=== PATIENT | female | born 1980 | race Caucasian/White ===

== ENCOUNTER → 2017-03-19 | Outpatient (CLI) | payer OTHER | END | disposition home or self-care (01) | LOC: CFH 14:41 | PROVIDERS: ATTEND Physician Assistant | DX: M25.461 Effusion, right knee (principal); S83.231A Complex tear of medial meniscus, current injury, right knee, initial encounter; M79.4 Hypertrophy of (infrapatellar) fat pad; M25.861 Other specified joint disorders, right knee; X58.XXXA Exposure to other specified factors, initial encounter; Y93.89 Activity, other specified; Y92.89 Other specified places as the place of occurrence of the external cause; Y99.8 Other external cause status ==

== ENCOUNTER 2017-04-13 06:08 | Emergency (ER) | payer OTHER ==
[~2017-04-13] VITALS: Ht 160 cm; Wt 83.8 kg
[2017-04-13] MEDS ORDERED: SODIUM CHLORIDE FLUSH 10ML SYR IVF ONE (07:30)
[2017-04-13] MEDS ORDERED: SODIUM CHLORIDE 0.9% 1,000ML IVBOLUS ONE (07:30)
[2017-04-13] MEDS ORDERED: ONDANSETRON 2MG/ML, 2ML IVPush ONE (07:30)
[2017-04-13] MEDS ORDERED: ONDANSETRON 2MG/ML, 2ML ONE ×2 (07:41→07:43)
[2017-04-13 07:55] LABS: PATH.CAST-FLAG NOT PRESENT; SPERM-FLAG NOT PRESENT; SRC-FLAG NOT PRESENT; XTAL-FLAG NOT PRESENT; YLC-FLAG NOT PRESENT
[2017-04-13] MEDS ORDERED: HYDROmorphone 1 MG/ML, 1ML ONE ×2 (08:14→10:21)
[2017-04-13 08:21] LABS: ASPARTATE AMINO TRANSFERASE 13 U/L (15-37); BLOOD UREA NITROGEN 14 mg/dL (7-18)
[2017-04-13] MEDS ORDERED: HYDROmorphone 1 MG/ML, 1ML IV ONE ×2 (09:00→10:30)
[2017-04-13 11:37] VITALS: BP 97/47
== END 2017-04-13 11:39 | disposition home or self-care (01) ==
LOC: ED 09:02
DX: N83.201 Unspecified ovarian cyst, right side (principal); D72.829 Elevated white blood cell count, unspecified
CPT/HCPCS: 36415; 76830; 80053; 81001; 83690; 84703; 85025; 96361; 96374; 96375; 96376; 99285; J1170; J2405; J7030

== ENCOUNTER 2017-04-15 12:33 | Inpatient (IN) | payer OTHER ==
[~2017-04-15] VITALS: Ht 160 cm; Wt 84.1 kg
[2017-04-15] MEDS ORDERED: ONDANSETRON 2MG/ML, 2ML ONE (14:03)
[2017-04-15] MEDS ORDERED: HYDROmorphone 1 MG/ML, 1ML ONE ×2 (14:03→16:06)
[2017-04-15] MEDS: HYDROmorphone 1 MG/ML, 1ML IVPush PRN ×2 (14:13→16:11)
[2017-04-15] MEDS ORDERED: ONDANSETRON 2MG/ML, 2ML IVPush ONE (14:30)
[2017-04-15] MEDS ORDERED: SODIUM CHLORIDE 0.9%, 500ML IVBOLUS ONE (14:30)
[2017-04-15 14:45] LABS: ASPARTATE AMINO TRANSFERASE 9 U/L (15-37); BLOOD UREA NITROGEN 11 mg/dL (7-18)
[2017-04-15 14:53] LABS: HEMATOCRIT 35.8 % (34.6-47.8); WHITE BLOOD COUNT 11.6 x10^3/uL (3.4-10)
[2017-04-15] MEDS ORDERED: OMNIPAQUE 350 MG/ML, 100ML BOTTLE ONE (17:32)
[2017-04-15] MEDS ORDERED: ONDANSETRON 2MG/ML, 2ML IVPush PRN (20:30)
[2017-04-15] MEDS ORDERED: morphine SULFATE 10 MG/ML, 1ML IVPush PRN (20:30)
[2017-04-15] MEDS: SIMETHICONE 80 MG CHEW TAB PO SCH (21:43)
[2017-04-15] MEDS: DOCUSATE 100 MG CAPSULE PO SCH (21:43)
[2017-04-15] MEDS: LACTATED RINGERS 1,000 ML IV SCH (21:44)
[2017-04-15] MEDS: KETOROLAC 30 MG/1 ML IVPush PRN (21:44)
[2017-04-15 22:30] VITALS: BP 126/76
[2017-04-16 01:20] VITALS: BP 103/62
[2017-04-16] MEDS: LACTATED RINGERS 1,000 ML IV SCH (05:36)
[2017-04-16] MEDS: KETOROLAC 30 MG/1 ML IVPush PRN (05:46)
[2017-04-16 07:04] VITALS: BP 97/59
[2017-04-16] MEDS: SIMETHICONE 80 MG CHEW TAB PO SCH ×2 (09:37→16:59)
[2017-04-16] MEDS: DOCUSATE 100 MG CAPSULE PO SCH (09:37)
[2017-04-16] MEDS ORDERED: IBUPROFEN 200 MG TABLET PO PRN (11:00)
[2017-04-16] MEDS ORDERED: IBUPROFEN 600 MG TABLET ONE (12:17)
[2017-04-16] MEDS: OXYcodone/APAP 5/325MG TABLET PO PRN ×2 (13:01→16:59)
[2017-04-16 14:53] VITALS: BP 134/89
[2017-04-16] MEDS ORDERED: OXYC-302 PO (16:36)
[2017-04-16] MEDS ORDERED: IBUP800T PO (16:36)
[2017-04-16] MEDS ORDERED: ONDA4TAB7 PO (16:37)
[2017-04-16 17:00] VITALS: BP 117/75
== END 2017-04-16 17:10 | disposition home or self-care (01) | DRG 761 ==
LOC: ED 14:42 → EDIP 17:40 → 4NOR 19:47
PROVIDERS: ADMIT Obstetrics & Gynecology; ATTEND Obstetrics & Gynecology
DX: N83.201 Unspecified ovarian cyst, right side (principal); Z90.89 Acquired absence of other organs; Z88.0 Allergy status to penicillin; Z80.3 Family history of malignant neoplasm of breast
CPT/HCPCS: 36415; 74177; 80053; 81003; 83605; 85025; 96361; 96374; 96375; 96376; J1170; J1885; J2405; Q9967; J7040; J7120

== ENCOUNTER → 2017-05-17 | Outpatient (CLI) | payer OTHER ==
[~2017-05-17] MED LIST: IBUP-1223 PO; LACT1CAP40 PO; MULT-516 PO; ONDA4TAB7 PO; OXYC-302 PO
== END | disposition home or self-care (01) ==
LOC: STAR 15:14
PROVIDERS: ATTEND Orthopaedic Surgery
DX: Z02.9 Encounter for administrative examinations, unspecified (principal)

== ENCOUNTER 2017-05-23 13:26 | Day surgery (SDC) | payer OTHER ==
[~2017-05-23] VITALS: Ht 157.5 cm; Wt 80.7 kg
[~2017-05-23 13:26] MED LIST changes: +EPINEPHRINE 1 MG/ML, 1ML ONE; +LIDOCAINE/PF 1%, 30ML ONE; +ROPIvacaine/PF 0.5%, 30 ML ONE
[2017-05-23] MEDS ORDERED: LACTATED RINGERS 1,000 ML IV SCH (13:48)
[2017-05-23 14:16] VITALS: BP 134/75
[2017-05-23 14:24] LABS: HCG UR OBC PASS
[2017-05-23] MEDS ORDERED: ROCURONIUM 10 MG/ML ONE (14:46)
[2017-05-23] MEDS ORDERED: ONDANSETRON 2MG/ML, 2ML ONE (14:46)
[2017-05-23] MEDS ORDERED: PROPOFOL 10 MG/ML, 20ML ONE (14:46)
[2017-05-23] MEDS ORDERED: CEFAZOLIN 1,000 MG ONE (14:46)
[2017-05-23] MEDS ORDERED: DEXAMETHASONE 4 MG/ML, 1ML ONE (14:46)
[2017-05-23] MEDS ORDERED: SUCCINYLCHOLINE 20 MG/ML, 10ML ONE (14:46)
[2017-05-23] MEDS ORDERED: MIDAZOLAM 1 MG/ML, 2ML ONE (14:48)
[2017-05-23] MEDS ORDERED: FENTANYL PF 100 MCG/2ML ONE ×2 (14:49→15:38)
[2017-05-23] MEDS ORDERED: MIDAZOLAM 1 MG/ML, 2ML IV PRN (15:00)
[2017-05-23] MEDS ORDERED: OXYcodone 5 MG/5 ML ORAL.SOL UDC PO PRN (15:00)
[2017-05-23] MEDS ORDERED: PROMETHAZINE 25 MG/ML, 1ML IV PRN (15:00)
[2017-05-23] MEDS ORDERED: METOPROLOL 1 MG/ML, 5ML IV PRN (15:00)
[2017-05-23] MEDS ORDERED: hydrALAzine 20 MG/ML, 1ML IV PRN (15:00)
[2017-05-23] MEDS ORDERED: METOCLOPRAMIDE 5 MG/ML, 2ML IV PRN (15:00)
[2017-05-23] MEDS ORDERED: ACETAMINOPHEN 325 MG TABLET PO PRN (15:00)
[2017-05-23] MEDS ORDERED: ONDANSETRON 2MG/ML, 2ML IVPush PRN (15:00)
[2017-05-23] MEDS ORDERED: EPHEDRINE 50 MG/ML, 1ML IVPush PRN (15:00)
[2017-05-23] MEDS ORDERED: HYDROcodone/APAP 7.5-325MG/15ML UDC PO PRN (15:00)
[2017-05-23] MEDS ORDERED: MEPERIDINE/PF 25MG/0.5ML IVPush PRN (15:00)
[2017-05-23] MEDS ORDERED: LABETALOL 5MG/ML, 20ML IV PRN (15:00)
[2017-05-23] MEDS ORDERED: KETOROLAC 30 MG/1 ML IV PRN (15:00)
[2017-05-23] MEDS ORDERED: ALBUTEROL SULFATE 2.5 MG/3 ML NPPB PRN (15:00)
[2017-05-23] MEDS ORDERED: METOCLOPRAMIDE 5 MG/ML, 2ML ONE (15:28)
[2017-05-23] MEDS ORDERED: KETOROLAC 30 MG/1 ML ONE (15:28)
[2017-05-23] MEDS ORDERED: HYDROmorphone 1 MG/ML, 1ML ONE (15:28)
[2017-05-23] MEDS: HYDROmorphone 1 MG/ML, 1ML IV PRN ×2 (15:30→15:40)
[2017-05-23] MEDS ORDERED: OXYcodone 5 MG/5 ML ORAL.SOL UDC ONE (15:38)
[2017-05-23] MEDS ORDERED: ACETAMINOPHEN 650 MG/20.3 ML UDC ONE (15:38)
[2017-05-23] MEDS: FENTANYL PF 100 MCG/2ML IV PRN ×2 (15:42→15:55)
[2017-05-23] MEDS ORDERED: OXYcodone/APAP 5/325MG TABLET ONE (16:50)
[2017-05-23] MEDS ORDERED: OXYcodone/APAP 5/325MG TABLET PO PRN (17:30)
== END 2017-05-23 17:15 | disposition home or self-care (01) ==
LOC: OUT 13:26
PROVIDERS: ATTEND Orthopaedic Surgery
DX: S83.241A Other tear of medial meniscus, current injury, right knee, initial encounter (principal); M67.51 Plica syndrome, right knee; M65.861 Other synovitis and tenosynovitis, right lower leg; M94.8X6 Other specified disorders of cartilage, lower leg; Z88.0 Allergy status to penicillin; Z98.890 Other specified postprocedural states; X58.XXXA Exposure to other specified factors, initial encounter; Y93.89 Activity, other specified; Y92.89 Other specified places as the place of occurrence of the external cause; Y99.8 Other external cause status
CPT/HCPCS: 29881; 81025; J0171; J0330; J0690; J1100; J1170; J1885; J2250; J2405; J2704; J2765; J2795; J3010; J3490; J7120

== ENCOUNTER 2017-12-13 09:46 | Emergency (ER) | payer OTHER ==
[~2017-12-13] VITALS: Ht 160 cm; Wt 83.4 kg
[~2017-12-13 09:46] MED LIST changes: -EPINEPHRINE 1 MG/ML, 1ML ONE; -LIDOCAINE/PF 1%, 30ML ONE; -ROPIvacaine/PF 0.5%, 30 ML ONE
[2017-12-13] MEDS ORDERED: ALBUTEROL/IPRATROPIUM 2.5MG/0.5MG, 3 ML NPPB ONE (10:30)
[2017-12-13] MEDS ORDERED: ASPIRIN 81 MG TABLET CHEW PO ONE (10:30)
[2017-12-13] MEDS ORDERED: ASPIRIN 81 MG TABLET CHEW ONE (10:36)
[2017-12-13 10:49] LABS: BASOPHILS # (AUTO) 0.08 x10^3/uL (0-0.1); BASOPHILS % (AUTO) 1 % (0-1); EOSINOPHILS # (AUTO) 0.06 x10^3/uL (0-0.4); EOSINOPHILS % (AUTO) 1 % (1-7); LYMPHOCYTES # (AUTO) 3.55 x10^3/uL (1-3.4); LYMPHOCYTES % (AUTO) 31 % (22-44); MD NO; MEAN CORPUSCULAR HEMOGLOBIN 32.9 pg (27.0-34.8); MEAN CORPUSCULAR HGB CONC 34.1 g/dL (32.4-35.8); MEAN CORPUSCULAR VOLUME 96.4 fL (80-100); MEAN PLATELET VOLUME 9.7 fL (7.4-10.4); MONOCYTES # (AUTO) 0.66 x10^3/uL (0.2-0.8); MONOCYTES % (AUTO) 6 % (2-9); NEUTROPHILS # (AUTO) 6.95 x10^3/uL (1.8-6.8); NEUTROPHILS % (AUTO) 62 % (42-75); PLATELET COUNT 217 x10^3/uL (130-400); RED BLOOD COUNT 3.91 x10^6/uL (3.82-5.3); RED CELL DISTRIBUTION WIDTH 12.9 % (9.6-15.2)
[2017-12-13 10:59] LABS: ALBUMIN 3.3 g/dL (3.4-5.0); ANION GAP 10 mmol/L (5-15); CHLORIDE 109 mmol/L (98-107)
[2017-12-13 11:05] LABS: ALANINE AMINOTRANSFERASE 21 U/L (12-78); ALKALINE PHOSPHATASE 46 U/L (45-117); BILIRUBIN,TOTAL 0.7 mg/dL (0.2-1.0); CREATININE 0.78 mg/dL (0.55-1.02); TOTAL PROTEIN 6.3 g/dL (6.4-8.2); TROPONIN I < 0.015 ng/mL (0.000-0.045)
[2017-12-13] MEDS ORDERED: ALBUTEROL/IPRATROPIUM 2.5MG/0.5MG, 3 ML ONE (11:57)
[2017-12-13 12:33] VITALS: BP 112/61
== END 2017-12-13 12:40 | disposition home or self-care (01) ==
LOC: ED 12:34
DX: G89.29 Other chronic pain (principal); M54.6 Pain in thoracic spine; R06.00 Dyspnea, unspecified; Z87.891 Personal history of nicotine dependence
CPT/HCPCS: 36415; 71045; 80053; 83880; 84484; 85025; 85379; 93005; 93971; 94640; 99285; J7512; J7620

== ENCOUNTER → 2018-01-09 | Outpatient (CLI) | payer OTHER ==
[~2018-01-09] MED LIST changes: +REGADENOSON 0.4 MG/5 ML SYRINGE ONE
== END ==
LOC: CFH 12:47
PROVIDERS: ATTEND Internal Medicine Cardiovascular Disease
DX: R94.31 Abnormal electrocardiogram [ECG] [EKG] (principal); R07.89 Other chest pain
CPT/HCPCS: 78452; 93017; A9502; J2785

== ENCOUNTER → 2018-05-23 | Outpatient (CLI) | payer OTHER ==
[~2018-05-23] MED LIST changes: -REGADENOSON 0.4 MG/5 ML SYRINGE ONE
== END | disposition home or self-care (01) ==
LOC: RAD 12:51
PROVIDERS: ATTEND Otolaryngology
DX: J31.2 Chronic pharyngitis (principal); R49.0 Dysphonia; Z88.1 Allergy status to other antibiotic agents; Z87.891 Personal history of nicotine dependence
CPT/HCPCS: 74220

== ENCOUNTER 2018-11-24 10:21 | Emergency (ER) | payer OTHER ==
[~2018-11-24] VITALS: Ht 157.5 cm; Wt 73.0 kg
--- NOTE | 2018-11-24 10:25 | NUR ---
TASK RN: PT TO IMAGING
[2018-11-24] MEDS ORDERED: ONDANSETRON 2MG/ML, 2ML IVPush ONE (10:30)
[2018-11-24] MEDS ORDERED: ONDANSETRON 2MG/ML, 2ML ONE (10:34)
[2018-11-24] MEDS ORDERED: OMNIPAQUE 350 MG/ML, 100ML BOTTLE ONE (10:50)
[2018-11-24] MEDS ORDERED: MORPHINE SULFATE 4 MG/ML, 1ML ONE ×3 (10:50→16:17)
[2018-11-24] MEDS: MORPHINE SULFATE 4 MG/ML, 1ML IVPush PRN ×2 (10:51→11:56)
[2018-11-24] MEDS ORDERED: PLEASE ENTER HEIGHT AND WEIGHT MC SCH (11:00)
--- NOTE | 2018-11-24 11:03 | NUR ---
FRIEND AT BS DURING ASSESSMENT
--- NOTE | 2018-11-24 11:03 | NUR ---
NEURO AT BS VIA TELEMONITOR
[2018-11-24 11:06] LABS: BASOPHILS # (AUTO) 0.05 x10^3/uL (0-0.1); BASOPHILS % (AUTO) 0 % (0-1); EOSINOPHILS # (AUTO) 0.08 x10^3/uL (0-0.4); EOSINOPHILS % (AUTO) 1 % (1-7); LYMPHOCYTES # (AUTO) 3.56 x10^3/uL (1-3.4); LYMPHOCYTES % (AUTO) 33 % (22-44); MD NO; MEAN CORPUSCULAR HGB CONC 33.6 g/dL (32.4-35.8); MEAN CORPUSCULAR VOLUME 98.2 fL (80-100); MONOCYTES # (AUTO) 0.79 x10^3/uL (0.2-0.8); MONOCYTES % (AUTO) 7 % (2-9); NEUTROPHILS # (AUTO) 6.21 x10^3/uL (1.8-6.8); NEUTROPHILS % (AUTO) 58 % (42-75); PLATELET COUNT 234 x10^3/uL (130-400); RED BLOOD COUNT 3.78 x10^6/uL (3.82-5.3); RED CELL DISTRIBUTION WIDTH 13.9 % (9.6-15.2)
[2018-11-24 11:10] LABS: INTERNATIONAL NORMALIZED RATIO 0.95 (0.93-1.1)
--- NOTE | 2018-11-24 11:47 | NUR ---
PATIENT NEURO RE-ASSESSED, STABLE NEURO ASSESSMENT WITH LEFT SIDED DFEICITS. NO CHANGE, EXCEPT SOME IMPROVEMENT WITH LEG STRENGTH
--- NOTE | 2018-11-24 12:35 | NUR ---
PATIENT TRANSFERED TO [facility]. PATIENT ABLE TO STAND, ONE PERSON ASSIST. UPDATED ON PLAN OF CARE.
--- NOTE | 2018-11-24 12:54 | NUR ---
Bedside report received from AKILAH Montiel. Patient with small amount of residual weakness on the left, patient states she feels this is resolving. Plan is for patient to go to MRI, plan of care updated with patient, questions answered. Patient is alert and appropriate at this time, daughter at bedside.
--- NOTE | 2018-11-24 13:35 | NUR ---
AWAITING MRI. MOVED TO ROOM 27
--- NOTE | 2018-11-24 14:17 | NUR ---
patient taken to MRI. daughter at bs
[2018-11-24] MEDS ORDERED: GADOBUTROL 7.5 MMOL/7.5 ML PFS ONE (14:20)
--- NOTE | 2018-11-24 14:52 | NUR ---
PATIENT FROM MRI
[2018-11-24 15:10] VITALS: BP 115/64
[2018-11-24] MEDS ORDERED: MORPHINE SULFATE 4 MG/ML, 1ML IVPush PRN (16:30)
== END 2018-11-24 16:37 | disposition home or self-care (01) ==
LOC: ED 16:09
DX: R51 Headache (principal); I48.91 Unspecified atrial fibrillation; R53.1 Weakness
CPT/HCPCS: 36415; 70450; 70496; 70498; 70553; 80047; 85025; 85610; 85730; 93005; 96374; 96375; 96376; 99284; A9585; J2405; Q9967

== ENCOUNTER 2019-04-08 14:04 | Outpatient (CLI) | payer OTHER | END 2019-04-08 23:59 | disposition home or self-care (01) | LOC: CFH 14:04 | PROVIDERS: ATTEND Nurse Practitioner Family | DX: Z12.31 Encounter for screening mammogram for malignant neoplasm of breast (principal) | CPT/HCPCS: 77063; 77067 ==

== ENCOUNTER → 2020-03-04 | Outpatient (CLI) | payer OTHER ==
[~2020-03-04] MED LIST changes: +ASPI81TA45 PO; +ELDERBERRY PO
[2020-03-04 09:25] LABS: ANION GAP 7 mmol/L (5-15); CALCIUM 8.5 mg/dL (8.5-10.1); CHLORIDE 107 mmol/L (98-107); CREATININE 0.85 mg/dL (0.55-1.02)
[2020-03-04 09:31] LABS: HCG UR SG 1.004 (1.003-1.030)
[2020-03-04 10:24] LABS: MEAN CORPUSCULAR HEMOGLOBIN 32.6 pg (27.0-34.8); MEAN CORPUSCULAR HGB CONC 33.5 g/dL (32.4-35.8); MEAN CORPUSCULAR VOLUME 97.2 fL (80-100); MEAN PLATELET VOLUME 10.6 fL (7.4-10.4); PLATELET COUNT 182 x10^3/uL (130-400); RED BLOOD COUNT 4.42 x10^6/uL (3.82-5.3); RED CELL DISTRIBUTION WIDTH 14.2 % (9.6-15.2)
[2020-03-04 10:28] LABS: MD SCAN
[2020-03-04 10:29] LABS: BASOPHILS # (AUTO) 0.04 x10^3/uL (0-0.1); BASOPHILS % (AUTO) 0 % (0-1); EOSINOPHILS # (AUTO) 0.08 x10^3/uL (0-0.4); EOSINOPHILS % (AUTO) 1 % (1-7); LYMPHOCYTES # (AUTO) 2.79 x10^3/uL (1-3.4); LYMPHOCYTES % (AUTO) 24 % (22-44); MONOCYTES % (AUTO) 7 % (2-9); NEUTROPHILS # (AUTO) 8.15 x10^3/uL (1.8-6.8); NEUTROPHILS % (AUTO) 69 % (42-75)
== END | disposition home or self-care (01) ==
LOC: STAR 08:34
PROVIDERS: ATTEND Obstetrics & Gynecology
DX: Z01.818 Encounter for other preprocedural examination (principal); R10.2 Pelvic and perineal pain; N93.9 Abnormal uterine and vaginal bleeding, unspecified
CPT/HCPCS: 36415; 80048; 81025; 85025

== ENCOUNTER 2020-03-08 10:29 | Inpatient (IN) | payer OTHER ==
[~2020-03-08] VITALS: Ht 157.5 cm; Wt 71.6 kg
[2020-03-08 11:10] VITALS: BP 110/74
[2020-03-08] MEDS ORDERED: CHLORHEXIDINE 15 ML UDC ONE (11:13)
[2020-03-08 11:21] LABS: HCG UR SG 1.014 (1.003-1.030)
[2020-03-08] MEDS ORDERED: LACTATED RINGERS 1,000 ML IV SCH (11:30)
[2020-03-08] MEDS ORDERED: CHLORHEXIDINE 15 ML UDC MM ONE (11:30)
[2020-03-08] MEDS ORDERED: BUPIVACAINE/PF 0.25% ONE (11:51)
[2020-03-08] MEDS ORDERED: EPINEPHRINE 1 MG/ML, 1ML ONE (11:51)
[2020-03-08] MEDS ORDERED: ACETAMINOPHEN 500 MG TABLET PO ONE (12:00)
[2020-03-08] MEDS ORDERED: OXYcodone IR 5MG TABLET PO ONE (12:00)
[2020-03-08] MEDS ORDERED: SCOPOLAMINE 1MG PATCH TD SCH (12:00)
[2020-03-08] MEDS ORDERED: FLUORESCEIN SODIUM 500 MG/5 ML ONE (12:04)
[2020-03-08] MEDS ORDERED: MIDAZOLAM 1 MG/ML, 2ML ONE (12:13)
[2020-03-08] MEDS ORDERED: FENTANYL PF 250 MCG/5ML ONE (12:14)
[2020-03-08] MEDS ORDERED: ROCURONIUM 10 MG/ML,10ML ONE (12:35)
[2020-03-08] MEDS ORDERED: DEXAMETHASONE 4 MG/ML, 1ML ONE (12:35)
[2020-03-08] MEDS ORDERED: ONDANSETRON 2MG/ML, 2ML ONE (12:35)
[2020-03-08] MEDS ORDERED: PROPOFOL 10 MG/ML, 50ML ONE (12:35)
[2020-03-08] MEDS ORDERED: CEFAZOLIN 1,000 MG ONE (12:35)
[2020-03-08] MEDS ORDERED: PROPOFOL 10 MG/ML, 20ML ONE (12:35)
[2020-03-08] MEDS ORDERED: ONDANSETRON 2MG/ML, 2ML IVPush PRN (13:00)
[2020-03-08] MEDS ORDERED: OXYcodone 5 MG/5 ML ORAL.SOL UDC PO PRN (13:00)
[2020-03-08] MEDS ORDERED: PROMETHAZINE 25 MG/ML, 1ML IVPush PRN (13:00)
[2020-03-08] MEDS ORDERED: MEPERIDINE/PF 25MG/0.5ML IVPush PRN (13:00)
[2020-03-08] MEDS ORDERED: MEPERIDINE/PF 25MG/ML,1ML ONE (16:10)
[2020-03-08] MEDS ORDERED: FENTANYL PF 100 MCG/2ML ONE (16:16)
[2020-03-08] MEDS: FENTANYL PF 100 MCG/2ML IV PRN ×3 (16:25→16:37)
[2020-03-08] MEDS ORDERED: PROMETHAZINE 25 MG/ML, 1ML ONE (16:29)
[2020-03-08] MEDS ORDERED: HYDROmorphone 1 MG/ML, 1ML INJ ONE (16:45)
[2020-03-08] MEDS: HYDROmorphone 1 MG/ML, 1ML INJ IVPush PRN ×2 (16:50→17:15)
[2020-03-08] MEDS ORDERED: ONDANSETRON 2MG/ML, 2ML IV PRN (18:30)
[2020-03-08] MEDS ORDERED: KETOROLAC 30 MG/1 ML IV PRN (18:30)
[2020-03-08] MEDS: OXYcodone/APAP 5/325MG TABLET PO PRN ×2 (19:34→20:33)
[2020-03-08] MEDS ORDERED: SODIUM CHLORIDE FLUSH 10ML SYR IVF SCH (21:00)
== END 2020-03-08 21:10 | disposition home or self-care (01) | DRG 743 ==
LOC: OUT 10:29 → 4NE 17:58 → OUT 18:13
PROVIDERS: ADMIT Obstetrics & Gynecology; ATTEND Obstetrics & Gynecology
PROC: BT1D1ZZ Fluoroscopy of Right Kidney, Ureter and Bladder using Low Osmolar Contrast (ICD-10-PCS; 2020-03-08)
PROC: 0UT9FZZ Resection of Uterus, Via Natural or Artificial Opening With Percutaneous Endoscopic Assistance (ICD-10-PCS; principal; 2020-03-08 12:30)
PROC: 0UT7FZZ Resection of Bilateral Fallopian Tubes, Via Natural or Artificial Opening With Percutaneous Endoscopic Assistance (ICD-10-PCS; 2020-03-08 12:30)
DX: N93.8 Other specified abnormal uterine and vaginal bleeding (principal); G89.29 Other chronic pain; R10.2 Pelvic and perineal pain; N99.85 Post endometrial ablation syndrome; N94.6 Dysmenorrhea, unspecified; Z90.89 Acquired absence of other organs; Z88.0 Allergy status to penicillin; Z80.3 Family history of malignant neoplasm of breast
CPT/HCPCS: 36415; 74420; 81025; 87635; 88307; G0378; J0171; J0690; J1100; J1170; J1885; J2175; J2250; J2405; J2550; J2704; J3010; J3490; C1758; C1769; J7120

== ENCOUNTER → 2020-05-02 | Outpatient (CLI) | payer OTHER ==
[2020-05-02 07:41] LABS: BASOPHILS # (AUTO) 0.06 x10^3/uL (0-0.1); BASOPHILS % (AUTO) 1 % (0-1); EOSINOPHILS # (AUTO) 0.12 x10^3/uL (0-0.4); EOSINOPHILS % (AUTO) 2 % (1-7); LYMPHOCYTES % (AUTO) 42 % (22-44); MD NO; MEAN CORPUSCULAR HEMOGLOBIN 32.4 pg (27.0-34.8); MEAN CORPUSCULAR HGB CONC 33.2 g/dL (32.4-35.8); MEAN CORPUSCULAR VOLUME 97.6 fL (80-100); MEAN PLATELET VOLUME 9.4 fL (7.4-10.4); MONOCYTES # (AUTO) 0.72 x10^3/uL (0.2-0.8); MONOCYTES % (AUTO) 10 % (2-9); NEUTROPHILS # (AUTO) 3.55 x10^3/uL (1.8-6.8); NEUTROPHILS % (AUTO) 46 % (42-75); PLATELET COUNT 204 x10^3/uL (130-400); RED BLOOD COUNT 4.37 x10^6/uL (3.82-5.3); RED CELL DISTRIBUTION WIDTH 13.5 % (9.6-15.2)
[2020-05-02 07:51] LABS: ALANINE AMINOTRANSFERASE 19 U/L (12-78); ALBUMIN 3.5 g/dL (3.4-5.0); ANION GAP 6 mmol/L (5-15); CALCIUM 8.7 mg/dL (8.5-10.1); CHLORIDE 110 mmol/L (98-107); CHOLESTEROL, TOTAL 197 mg/dL (140-239); CREATININE 0.89 mg/dL (0.55-1.02); TRIGLYCERIDES 77 mg/dL (50-200); VLDL CHOLESTEROL 15 mg/dL (0-25)
[2020-05-02 08:01] LABS: ALKALINE PHOSPHATASE 50 U/L (45-117); BILIRUBIN,TOTAL 0.6 mg/dL (0.2-1.0); CHOL/HDL RATIO 3.3; HDL CHOL % 30 % (28-40); HDL CHOLESTEROL (DIRECT) 59 mg/dL (40-60); LDL CHOLESTEROL,CALCULATED 123 mg/dL (54-169); LDL/HDL RATIO 2.1 (0.5-3.0); TOTAL PROTEIN 6.7 g/dL (6.4-8.2)
== END | disposition home or self-care (01) ==
LOC: LAB 07:28
PROVIDERS: ATTEND Internal Medicine
DX: Z00.00 Encounter for general adult medical examination without abnormal findings (principal); E78.5 Hyperlipidemia, unspecified
CPT/HCPCS: 36415; 80053; 80061; 84443; 85025

== ENCOUNTER → 2020-05-10 | Outpatient (CLI) | payer OTHER | END | disposition home or self-care (01) | LOC: CFH 12:38 | PROVIDERS: ATTEND Internal Medicine | DX: Z12.31 Encounter for screening mammogram for malignant neoplasm of breast (principal) | CPT/HCPCS: 77063; 77067 ==

== ENCOUNTER 2021-05-11 12:40 | Outpatient (CLI) | payer OTHER ==
[~2021-05-11 12:40] MED LIST changes: -LACT1CAP40 PO; +LACT1CAP45 PO; -OXYC-302 PO; +OXYC1TAB12 PO
== END 2021-05-11 23:59 | disposition home or self-care (01) ==
LOC: CFH 12:40
PROVIDERS: ATTEND Internal Medicine
DX: Z12.31 Encounter for screening mammogram for malignant neoplasm of breast (principal)
CPT/HCPCS: 77063; 77067

== ENCOUNTER 2021-05-24 09:31 | Outpatient (CLI) | payer OTHER | END 2021-05-24 23:59 | disposition home or self-care (01) | LOC: CFH 09:31 | PROVIDERS: ATTEND Internal Medicine | DX: N63.22 Unspecified lump in the left breast, upper inner quadrant (principal) | CPT/HCPCS: 76642; 77065 ==